=== PATIENT | female | born 1990 | race Caucasian/White ===

== ENCOUNTER 2020-11-02 10:29 | Outpatient (CLI) | payer MEDICAID, SELFPAY ==
[2020-11-03 11:52] LABS: COVID-19 RT-PCR UVMMC Result Negative (Negative)
== END 2020-11-02 10:30 | disposition home or self-care (01) ==
LOC: LBO 10:30
PROVIDERS: PCP Family Medicine; Visit Provider Family Medicine
DX: Z20.822 Contact with and (suspected) exposure to COVID-19 (principal)
CPT/HCPCS: U0003

== ENCOUNTER 2021-01-15 13:24 | Outpatient (CLI) | payer MEDICAID, SELFPAY ==
[2021-01-15 14:42] LABS: HCG Quant, Pregnancy 27 mIU/mL (1-3)
== END 2021-01-15 13:25 | disposition home or self-care (01) ==
LOC: LBO 13:30
PROVIDERS: PCP Family Medicine; Visit Provider Family Medicine
DX: O03.9 Complete or unspecified spontaneous abortion without complication (principal)
CPT/HCPCS: 36415; 84702

== ENCOUNTER 2021-12-22 02:54 | Outpatient (CLI) | payer MEDICAID, SELFPAY | END 2021-12-22 02:55 | disposition home or self-care (01) | LOC: LBO 02:54 | PROVIDERS: PCP Family Medicine; Visit Provider Nurse Practitioner Gerontology ==

== ENCOUNTER 2022-08-16 16:27 | Outpatient (REF) | payer MEDICAID, SELFPAY | END 2022-08-16 16:28 | disposition home or self-care (01) | LOC: NCHCN 16:27 | PROVIDERS: PCP Family Medicine; Visit Provider Nurse Practitioner Family | DX: Z32.01 Encounter for pregnancy test, result positive (principal) | CPT/HCPCS: 84702 ==

== ENCOUNTER 2022-09-23 02:55 | Outpatient (CLI) | payer MEDICAID, SELFPAY ==
[2022-09-23 15:18] LABS: Panorama Kit Sent via Fed Ex
[2022-09-23 15:32] LABS: Abs Immature Grans 0.01 10^3/uL (0.0-0.06); Absolute Basophil Count 0.03 10^3/uL (0.0-0.2); Absolute Eosinophil Count 0.11 10^3/uL (0.0-0.7); Absolute Lymphocyte Count 2.07 10^3/uL (1.2-3.4); Absolute Monocyte Count 0.59 10^3/uL (0.1-0.8); Absolute Neutrophil Count 3.29 10^3/uL (1.2-6.7); Basophils % 0.5; Eosinophils % 1.8; HCT 38.8 % (36.0-46.0); HGB 13.4 g/dL (11.2-15.7); Immature Grans % 0.2; Lymphocytes % 33.9; MCH 32.7 pg (27.0-33.0); MCHC 34.5 % (32.0-36.0); MCV 95 fL (80-95); MPV 9.4 fL (8.0-11.0); Monocytes % 9.7; Neutrophils % 53.9; Platelet Count 338 10^3/uL (130-400); RDW 12.5 % (11.7-14.6); RDW-SD 43.6 fL
[2022-09-23 17:24] LABS: *AMPHETAMINES SCREEN URINE Negative (Negative); *BARBITURATES SCREEN URINE Negative (Negative); *BENZODIAZEPINES SCREEN URINE Negative (Negative); Cannabinoids THC Positive (Negative); Cocaine Screen,Urine Positive (Negative); METHADONE URINE SCREEN Negative (Negative); OPIATES URINE SCREEN Negative (Negative)
[2022-09-23 17:25] LABS: Tricyclic Antidepressants Negative (Negative)
[2022-09-23 17:34] LABS: Lab Add On Test DONE
[2022-09-24 15:24] LABS: Syphilis IgG w/Reflex Reactive (Nonreactive)
[2022-09-25 13:21] LABS: HIV-1/2 Ag & Ab Screen Negative (Negative)
[2022-09-26 09:10] LABS: Hepatitis B Surface Ag Negative (Negative)
[2022-09-26 09:22] LABS: Hepatitis C Ab w Rflx HCV PCR Negative (Negative)
[2022-09-26 11:40] LABS: Varicella IgG Antibody Positive (See Note)
[2022-09-26 11:43] LABS: Rubella IgG Ab (UVM) Positive (See Note)
[2022-09-26 13:47] LABS: RPR Screen w/Reflex Negative (Negative)
[2022-09-26 14:53] LABS: Syphilis Ab, TP-PA Positive (Negative)
[2022-09-27 11:28] LABS: AFP 18.9 ng/mL; Calculated age at EDD 34 years; GA used in risk estimate Scan estimate; IVF Pregnancy No; Initial or repeat testing Initial testing; Insulin dependent diabetes No; Maternal Weight 122 lbs; Number of Fetuses 1; Physician Phone Number 802-748-7300; Prev Pregnancy w/NTD No; RECOMMENDED FOLLOW UP None.; Results Summary Normal risk
[2022-10-01 16:21] LABS: Buprenorphine 16.4 ng/mL (Cutoff: 5.0)
[2022-10-03 15:24] LABS: Norfentanyl by LC-MS/MS Not Detected
[2022-10-17 11:29] LABS: Result Summary NEGATIVE; Specimen WB Whole Blood
== END 2022-09-23 02:56 | disposition home or self-care (01) ==
LOC: LBO 02:55
PROVIDERS: PCP Family Medicine; Visit Provider Advanced Practice Midwife
DX: O99.322 Drug use complicating pregnancy, second trimester (principal); F11.20 Opioid dependence, uncomplicated; O99.332 Smoking (tobacco) complicating pregnancy, second trimester; F17.210 Nicotine dependence, cigarettes, uncomplicated; Z3A.15 15 weeks gestation of pregnancy
CPT/HCPCS: 0064U; 36415; 80307; 80348; 81220; 81222; 86780; 86787; 86803; 86850; 86900; 86901; 87340; 87389; 80354; 82105; 85025; 86762; 87086

== ENCOUNTER 2022-10-28 00:08 | Outpatient (CLI) | payer MEDICAID, SELFPAY ==
--- NOTE | 2022-10-28 07:00 | DI.US_ITS ---
Exam(s) US OB MELISSA WEIGHT EXAM: US OB MELISSA WEIGHT CLINICAL HISTORY: ,z34.90. TECHNIQUE: Transabdominal obstetrical ultrasound performed. COMPARISON: No exams were available for comparison FINDINGS: Number of fetuses: 1 position: TRANSVERSE, head to the right Placental location: POSTERIOR No evidence of previa. BIOMETRIC DATA: BPD: 2.77cm, 15weeks HC: 10.76cm, 15weeks 1day AC: 9.47cm, 15weeks 4days FL: 2.02cm, 16weeks EFW: 132.93g, 0.28lb, less than 3% Composite Age: 15weeks 3days RUBENS: 04/18/2023 Heart Rate: No heart tones seen. Amniotic fluid index: Visually, amount of fluid is within normal limits. IMPRESSION: 1. Findings consistent with demise. 2. Findings were discussed with the patient's primary care provider on the date of the examination. 3. Ultrasound estimated gestational age is 15 weeks 3 days. DATA REPOSITORY:
== END 2022-10-28 00:28 ==
LOC: DI 00:09
PROVIDERS: PCP Family Medicine; Visit Provider Advanced Practice Midwife
DX: O02.1 Missed abortion (principal); Z3A.15 15 weeks gestation of pregnancy
CPT/HCPCS: 76816